=== PATIENT | male | born 1985 | race Caucasian/White ===

== ENCOUNTER 2017-08-28 08:09 | Emergency (ER) | payer BC ==
[2017-08-28 08:33] VITALS: BP 119/72
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
== END 2017-08-28 09:13 | disposition home or self-care (01) ==
LOC: UCEAST 08:09
DX: J34.89 Other specified disorders of nose and nasal sinuses (principal); R09.81 Nasal congestion; R05 Cough; R51 Headache; M79.1 Myalgia; Z88.5 Allergy status to narcotic agent
CPT/HCPCS: 99212; G0463

== ENCOUNTER 2017-10-18 16:35 | Emergency (ER) | payer BC ==
--- NOTE | 2017-10-18 17:48 | RAD ---
INDICATION: Foreign body. TECHNIQUE: 4 views of the left hand were obtained. FINDINGS: There is soft tissue swelling in the first 3 fingers. No fracture is seen. There are several small calcific densities measuring 1 to 1.5 mm present overlying the soft tissues adjacent to the distal aspect of the proximal phalanx of the thumb. Postsurgical changes are noted in the distal radius. The patient is status post operative reduction internal fixation. IMPRESSION: POSSIBLE FOREIGN BODIES IN OR ON THE SOFT TISSUES ADJACENT TO THE DISTAL ASPECT OF THE PROXIMAL PHALANX OF THE THUMB.
[2017-10-18] MEDS ORDERED: Tetan/Diph/Pertus SYR(Tdap)* 0.5 ML SYR(BOOSTRIX) use SYR IM ONE (18:08)
--- NOTE | 2017-10-18 18:26 | ED ---
Skin Complaint - HPI Summary HPI Summary: Patient is a 32-year-old male presenting to the ED with a chief complaint of puncture wounds to the thumb, index and middle finger. All wounds were through and through's. Injury sustained by an adhesive needle puncture. The areas are very small and no bleeding is visible. Endorses endorses full range of motion to the little and ring finger, but range of motion is limited to the middle finger. There is no erythema. Slight swelling to the middle finger. He is concerned over the toxic chemicals through the adhesive needle. Last tetanus over 10 years ago. - History of Current Complaint Chief Complaint: EDExtremityUpper Time Seen by Provider: 10/18/17 17:04 Stated Complaint: LT HAND THUMB AND 2 FINGERS INJURY Hx Obtained From: Patient Onset/Duration: Started Hours Ago Skin Exposure Onset/Duration: Hours Ago Timing: Constant Onset Severity: Mild Current Severity: Mild Pain Intensity: 4 Pain Scale Used: 0-10 Numeric Skin Location: Hand Character: Swelling Aggravating Symptom(s): Nothing Alleviating Symptom(s): Nothing Associated Signs & Symptoms: Negative Related History: Trauma, Foreign Body - Allergy/Home Medications Allergies/Adverse Reactions: Allergies Allergy/AdvReac Type Severity Reaction Status Date / Time opiates Allergy Unknown Swelling Uncoded 10/18/17 16:42 PMH/Surg Hx/FS Hx/Imm Hx Previously Healthy: Yes - Surgical History Surgery Procedure, Year, and Place: left wrist fx repair with plate - Immunization History Hx Pertussis Vaccination: No Immunizations Up to Date: Unable to Obtain/Confirm Infectious Disease History: No Infectious Disease History: Denies: Traveled Outside the [place] in Last 30 Days - Family History Known Family History: Positive: Cardiac Disease, Diabetes - Social History Occupation: Employed Full-time Lives: With Family Alcohol Use: None Hx Substance Use: No Substance Use Type: Reports: None Hx Tobacco Use: No Smoking Status (MU): Never Smoked Tobacco Review of Systems Constitutional: Negative Negative: Fever, Chills, Fatigue, Skin Diaphoresis Negative: Photophobia, Blurred Vision, Diplopia Negative: Palpitations, Chest Pain Negative: Shortness Of Breath Genitourinary: Negative Positive: no symptoms reported, see HPI Negative: Arthralgia, Myalgia Positive: Other - 5 small puncture wounds to the middle, index and thumb Neurological: Negative All Other Systems Reviewed And Are Negative: Yes Physical Exam Triage Information Reviewed: Yes Vital Signs On Initial Exam: Initial Vitals Temp Pulse Resp BP Pulse Ox 97.9 F 58 15 127/71 98 10/18/17 16:39 10/18/17 16:39 10/18/17 16:39 10/18/17 16:39 10/18/17 16:39 Vital Signs Reviewed: Yes Appearance: Positive: Well-Appearing, Well-Nourished Skin: Positive: Warm, Skin Color Reflects Adequate Perfusion, Other - see above Head/Face: Positive: Normal Head/Face Inspection Eyes: Positive: EOMI, JAY Neck: Positive: Supple, No Lymphadenopathy Respiratory/Lung Sounds: Positive: Clear to Auscultation, Breath Sounds Present Cardiovascular: Positive: RRR, Pulses are Symmetrical in both Upper and Lower Extremities Musculoskeletal: Positive: Normal, Strength/ROM Intact Neurological: Positive: Speech Normal Psychiatric: Positive: Affect/Mood Appropriate AVPU Assessment: Alert Diagnostics - Vital Signs Vital Signs Temp Pulse Resp BP Pulse Ox 10/18/17 16:39 97.9 F 58 15 127/71 98 - Laboratory Lab Statement: Any lab studies that have been ordered have been reviewed, and results considered in the medical decision making process. Course/Dx - Course Course Of Treatment: During the course of treatment, the patient is evaluated for puncture wounds to the little finger, ring finger and middle finger. He states he has a small amount of numbness which is intermittent to the left medial side of the middle finger. He endorses swelling to the middle finger and states he is unable to flex at the DIP and PIP due to swelling. There is no erythema to the area no warmth. Cleansed wounds thoroughly and Band-Aids applied. X-ray obtained which shows possible foreign body in or on the soft tissue adjacent to the distal aspect of the proximal phalanx of the thumb. This appears to be extremely small. He is able to move the thumb joint without any difficulty. I have given him a antibiotic of Keflex 5 days. Tetanus updated. Ice is encouraged and he will follow-up with orthopedics for any worsening or changing symptoms including worsening numbness. - Diagnoses Provider Diagnoses: Puncture wound Discharge - Sign-Out/Discharge Documenting (check all that apply): Discharge - Discharge Plan Condition: Stable Disposition: HOME Prescriptions: Cephalexin CAP* [Keflex CAP*] 500 mg PO BID #10 cap MDD 4 Patient Education Materials: Soft Tissue Foreign Body (ED), Puncture Wound (ED) Referrals: Gerhard Lopez MD [Medical Doctor] - Juan Mauro MD [Primary Care Provider] - Additional Instructions: Please follow-up with orthopedics for any worsening or changing symptoms Ice to the area as much as possible Ibuprofen 600 mg 3 times daily Keflex 500 mg twice daily 5 days Tetanus updated on this date - Billing Disposition and Condition Condition: STABLE Disposition: HOME
[2017-10-18 18:32] VITALS: BP 133/78
== END 2017-10-18 18:31 | disposition home or self-care (01) ==
LOC: ED 16:35
DX: S61.231A Puncture wound without foreign body of left index finger without damage to nail, initial encounter (principal); S61.233A Puncture wound without foreign body of left middle finger without damage to nail, initial encounter; W46.0XXA Contact with hypodermic needle, initial encounter; Y93.9 Activity, unspecified; Y92.9 Unspecified place or not applicable
CPT/HCPCS: 90471; 90715; 99282